=== PATIENT | female | born 1965 | race African-American/Black ===

== ENCOUNTER 2023-03-15 10:01 | Emergency (ER) | payer MEDICARE, MEDICAID ==
[~2023-03-15] VITALS: Ht 160 cm; Wt 190.0 kg
[2023-03-15] VITALS (7 sets, daily range): BP systolic 123–152; BP diastolic 54–125
[2023-03-15] MEDS ORDERED: PREDNISONE50 MG PO (11:05)
[2023-03-15] MEDS ORDERED: TORADOL PO (11:05)
== END 2023-03-15 11:30 | disposition home or self-care (01) ==
LOC: ED 10:01
DX: M54.41 Lumbago with sciatica, right side (principal)

== ENCOUNTER 2024-03-06 12:12 | Emergency (ER) | payer MEDICARE, MEDICAID ==
[~2024-03-06] VITALS: Ht 160 cm; Wt 86.0 kg
[~2024-03-06 12:12] MED LIST: CHLORTHALIDONE25 MG PO; KLOR-CON M1010 MEQ PO; LIPITOR80 M1 PO; LISINOPRIL10 MG PO; METFORMIN HCL500 M1 PO; PREDNISONE50 MG PO; PROTONIX40 M2 PO; TOPROL XL25 M1 PO; TORADOL PO; ZOLOFT25 MG PO
[2024-03-06] MEDS ORDERED: KETOROLAC TROMETHAMINE 15 MG/ML SDV IM ONE (12:40)
[2024-03-06 12:41] VITALS: BP 132/81
[2024-03-06 13:01] VITALS: BP 133/90
[2024-03-06 13:21] VITALS: BP 147/81
[2024-03-06 13:41] VITALS: BP 112/78
[2024-03-06] MEDS ORDERED: METHOCARBAMOL500 MG PO (14:11)
[2024-03-06 14:23] VITALS: BP 112/78
== END 2024-03-06 14:28 | disposition home or self-care (01) ==
LOC: ED 12:12
DX: S22.32XA Fracture of one rib, left side, initial encounter for closed fracture (principal); S20.222A Contusion of left back wall of thorax, initial encounter; M25.552 Pain in left hip; M25.562 Pain in left knee; I10 Essential (primary) hypertension; E11.9 Type 2 diabetes mellitus without complications; Y04.0XXA Assault by unarmed brawl or fight, initial encounter; Z79.84 Long term (current) use of oral hypoglycemic drugs; Z72.0 Tobacco use